=== PATIENT | male | born 1980 | race Caucasian/White ===

== ENCOUNTER 2024-06-24 19:33 | Emergency (ER) | payer MEDICAID ==
[~2024-06-24] VITALS: Ht 180.3 cm; Wt 105.1 kg
[~2024-06-24 19:33] MED LIST: AMLO1TAB22 PO; ATOR20TA50 PO; BLOO1KIT60 XX; ERTU5TAB PO; INSLANTI SC; LOSA-533 PO; METF-370 PO; PANT40TA2 PO
[2024-06-24 19:55] VITALS: BP 141/86; PULSE 104; RESP 22; O2SAT 95
[2024-06-24] MEDS ORDERED: SODIUM CHLORIDE 0.9% 1,000 ML IV ONE ×2 (20:00→23:15)
[2024-06-24] MEDS ORDERED: InsuLIN REG 1unit/0.01ml Soln (100units/ml) IV ONE (20:00)
[2024-06-24 20:31] LABS: Basophils # (auto) 0.1 10 ^3/uL (0-0.2); Basophils % (auto) 0.8 % (0.0-2.0); Eosinophils # (auto) 0.1 10 ^3/uL (0-0.8); Eosinophils % (auto) 1.2 % (0.0-7.0); Hematocrit 48.6 % (41.0-53.0); Hemoglobin 17.5 g/dL (13.5-17.5); Lymphocytes # (auto) 3.9 10 ^3/uL (0.4-5.4); Lymphocytes % (auto) 35.6 % (10.0-50.0); Mean Corpuscular Hemoglobin 34.2 pg (28.0-32.0); Monocytes # (auto) 0.6 10 ^3/uL (0-1.3); Monocytes % (auto) 5.6 % (0.0-12.0); Neutrophils # (auto) 6.2 10 ^3/uL (1.6-8.6); Neutrophils % (auto) 56.8 % (37.0-80.0); Nucleated Red Blood Cells % 0.1 %; Red Blood Cells 5.12 10^6/uL (4.5-5.90); Red Cell Distribution Width 13.1 % (11.8-14.3); White Blood Cell 10.9 10^3/uL (4.4-10.8)
[2024-06-24 20:36] LABS: Chloride 92 mmol/L (98-107); Potassium 3.7 mmol/L (3.5-5.1); Sodium 130 mmol/L (136-145)
[2024-06-24 20:37] LABS: Anion Gap 17 (5-15); Carbon Dioxide 21 mmol/L (20-30)
[2024-06-24 20:38] LABS: Calcium 9.8 mg/dL (8.7-10.4)
[2024-06-24 20:43] LABS: BUN/Creatinine Ratio 5.2 (10.0-20.0); Blood Urea Nitrogen 6 mg/dL (9-23)
[2024-06-24 20:47] LABS: Glucose 522 mg/dL (74-106)
[2024-06-24] MEDS ORDERED: ACETAMINOPHEN 325 MG TAB PO PRN (23:15)
[2024-06-24] MEDS ORDERED: ONDANSETRON HCL 4 MG/2 ML VIAL IV PRN (23:15)
[2024-06-24] MEDS ORDERED: DEXTROSE (50%) 50ML SYRG IV PRN (23:15)
[2024-06-25] MEDS ORDERED: InsuLIN REG 1unit/0.01ml Soln (100units/ml) SC SCH
[2024-06-25] MEDS ORDERED: ACCU-CHEK COMFORT CURVE STRIP VI SCH
[2024-06-25] MEDS ORDERED: LOSARTAN POTASSIUM 50 MG TAB PO SCH (10:00)
[2024-06-25] MEDS ORDERED: amLODIPine BESYLATE 5 MG TAB PO SCH (10:00)
[2024-06-25] MEDS ORDERED: ATORVASTATIN 20 MG TAB PO SCH (22:00)
== END 2024-06-25 00:10 | disposition left against medical advice (07) ==
LOC: ER 19:33 → OVERFLOW 23:11 → UNDOADMIN 23:11 → OVERFLOW 06-25 00:10
DX: E11.65 Type 2 diabetes mellitus with hyperglycemia (principal); F15.10 Other stimulant abuse, uncomplicated; E78.5 Hyperlipidemia, unspecified; I10 Essential (primary) hypertension; F17.210 Nicotine dependence, cigarettes, uncomplicated
CPT/HCPCS: 36415; 80048; 82010; 82962; 83036; 85025; G0378

== ENCOUNTER 2024-06-28 04:01 | Emergency (ER) | payer MEDICAID ==
[~2024-06-28] VITALS: Ht 180.3 cm; Wt 104.8 kg
[2024-06-28 04:05] VITALS: BP 116/85; PULSE 110; RESP 18; O2SAT 97
== END 2024-06-28 04:09 | disposition left against medical advice (07) ==
LOC: ER 04:05
DX: E11.65 Type 2 diabetes mellitus with hyperglycemia (principal); Z53.21 Procedure and treatment not carried out due to patient leaving prior to being seen by health care provider

== ENCOUNTER 2025-05-07 09:45 | Emergency (ER) | payer MEDICAID ==
[~2025-05-07] VITALS: Ht 180.3 cm; Wt 99.1 kg
--- NOTE | 2025-05-07 11:32 | ED.PDOC ---
History of Present Illness HPI Comments 44-year-old male w/ hx of pre dm who presents with a chief complaint of tooth pain x 3 days. Patient states that his pain is localized to his right upper teeth, and his pain rated as moderate at this time. Patient states that he has been taking Ibuprofen for the pain, with temp relief of symptoms. Patient denies seeing a dentist for this since symptoms began. Chief Complaint: Tooth Pain Time Seen by MD: 11:22 Primary Care Provider: ELIU Castillo Notes: Medications, Allergies Allergies: Coded Allergies: NO KNOWN ALLERGIES (Unverified , 04/20/10) Home Meds Active Scripts Blood Glucose Monitoring Suppl (D-Care Glucometer Kit/Glu W/Device) 1 Kit Kit, KIT XX BIDAC, #1 Prov:UZIEL BERNAL MD 06/01/22 Pantoprazole Sodium Sesquihydr (Protonix) 40 Mg Tab, 40 MG PO DAILY, #30 TAB Prov:UZIEL BERNAL MD 06/01/22 Atorvastatin Calcium (ATORVASTATIN CALCIUM) 20 Mg Tab, 1 TAB PO DAILY, #90 TAB 1 Refill Prov:UZIEL BERNAL MD 06/01/22 Insulin Glargine (Lantus) 100 Unit/Ml Inj, 15 UNITS SC HS, #10 INJ Prov:UZIEL BERNAL MD 06/01/22 Ertugliflozin l-Pyroglutamic A (Steglatro) 5 Mg Tab, 1 TAB PO DAILY, #30 TAB Prov:UZIEL BERNAL MD 06/01/22 Metformin Hydrochloride (Metformin Hcl) 500 Mg Tab, 1 TAB PO BID for 30 Days, #60 MG Prov:UZIEL BERNAL MD 06/01/22 Reported Medications Losartan Potassium (Losartan Potassium) 25 Mg Tab, 1 TAB PO DAILY for 30 Days, MG 05/31/22 Amlodipine Besylate (Amlodipine Besylate) 5 Mg Tab, 1 TAB PO DAILY, MG 05/31/22 Information Source: Patient Mode of Arrival: Ambulatory Severity: Moderate Timing: Days Duration: Since onset Prehospital treatment: None Past Medical History PAST MEDICAL HISTORY: DM, High Lipids, HTN Surgical History: Denies all surgeries Family History Family History: Reviewed,noncontributory to illness Social History Smoker: Cigarettes Alcohol: Heavy Drugs: Methamphetamine Lives In: Home All Other Systems: Reviewed and Negative ( PER HPI) Physical Exam General Appearance: No Apparent Distress, Normal HEENT: Normal ENT Inspection, Pharynx Normal, TMs Normal, Other (VISIBLE TOOTH DECAY TO UPPER AND LOWER TEETH, MMM, UVULA MIDLINE, NARES PATENT, NO ERYTHEMA OR SOFT TISSUE SWELLING, LOCALIZED TTP TO SINUSES) Neck: Full Range of Motion, Non-Tender, Normal, Normal Inspection Respiratory: Chest Non-Tender, Lungs Clear, No Accessory Muscle Use, No Respiratory Distress, Normal Breath Sounds Cardiovascular: No Murmur, No Gallop, Regular Rate/Rhythm Breast Exam: Deferred Gastrointestinal: No Organomegaly, Non Tender, No Pulsatile Mass, Normal Bowel Sounds, Soft Genitalia: Deferred Pelvic: Deferred Rectal: Deferred Extremities: No calf tenderness, Normal capillary refill, Normal inspection, Normal range of motion, Non-tender, No pedal edema Musculoskeletal : Apperance: Normal Neurologic: Alert, drum sander setter II-XII nml as Tested, No Motor Deficits, Normal Affect, Normal Mood, No Sensory Deficits Cerebellar Function: Normal Reflexes: Normal Skin: Dry, Normal Color, Warm Lymphatic: No Adenopathy Was a procedure done? Was a procedure done?: No Differential Dx Considerations may include: dental carries, dental abscess, subluxation X-Ray, Labs, Meds, VS Vital Signs Date Time Temp Pulse Resp B/P (MAP) Pulse Ox O2 Delivery O2 Flow Rate FiO2 05/07/25 18:17 98.2 98 16 125/74 (91) 95 98.2 05/07/25 17:50 68 18 142/98 05/07/25 17:06 105 18 137/101 05/07/25 14:16 95 18 139/92 05/07/25 14:15 98.6 95 18 139/92 (108) 99 98.6 05/07/25 13:11 91 18 137/88 05/07/25 13:10 91 19 137/88 (104) 100 05/07/25 12:45 98.0 98 16 142/88 (106) 98 98.0 05/07/25 12:45 98 16 97 Room Air 05/07/25 10:01 98.3 113 18 147/94 (111) 97 98.3 Lab Test 05/07/25 17:11 05/07/25 11:40 05/07/25 11:39 Range/Units Erythrocyte Sedimentation Rate 13 0-20 mm/hr Lactic Acid Level 3.1 *H 0.4-2.0 mmol/L White Blood Count 14.3 H 4.4-10.8 10^3/uL Red Blood Count 5.03 4.5-5.90 10^6/uL Hemoglobin 17.1 13.5-17.5 g/dL Hematocrit 47.6 41.0-53.0 % Mean Corpuscular Volume 94.7 80.0-100.0 fL Mean Corpuscular Hemoglobin 34.1 H 28.0-32.0 pg Mean Corpuscular Hemoglobin Concent 36.0 32.0-36.0 g/dL Red Cell Distribution Width 13.0 11.8-14.3 % Platelet Count 205 140-450 10^3/uL Mean Platelet Volume 9.2 6.9-10.8 fL Neutrophils (%) (Auto) 73.2 37.0-80.0 % Lymphocytes (%) (Auto) 19.2 10.0-50.0 % Monocytes (%) (Auto) 6.0 0.0-12.0 % Eosinophils (%) (Auto) 1.1 0.0-7.0 % Basophils (%) (Auto) 0.5 0.0-2.0 % Neutrophils # (Auto) 10.4 H 1.6-8.6 10 ^3/uL Lymphocytes # (Auto) 2.7 0.4-5.4 10 ^3/uL Monocytes # (Auto) 0.9 0-1.3 10 ^3/uL Eosinophils # (Auto) 0.2 0-0.8 10 ^3/uL Basophils # (Auto) 0.1 0-0.2 10 ^3/uL Nucleated Red Blood Cells 0.5 % Platelet Estimate Adequate Clumped Platelets Few Large Platelets Few Sodium Level 135 L 136-145 mmol/L Potassium Level 3.7 3.5-5.1 mmol/L Chloride Level 101 98-107 mmol/L Carbon Dioxide Level 21 20-31 mmol/L Anion Gap 13 5-15 Blood Urea Nitrogen < 5 L 9-23 mg/dL Creatinine 0.91 0.700-1.30 mg/dL Glomerular Filtration Rate Calc 107 >90 mL/min BUN/Creatinine Ratio 5.5 L 10.0-20.0 Serum Glucose 241 H 74-106 mg/dL Calcium Level 9.1 8.7-10.4 mg/dL C-Reactive Protein High Sensitivity 4.29 H <1.0 mg/dL Urine Color Light-yellow Yellow Urine Clarity Clear Clear Urine pH 5.5 5.0-9.0 Urine Specific [place] 1.039 H 1.001-1.035 Urine Protein Negative Negative Urine Ketones 3+ H Negative Urine Blood Negative Negative /uL Urine Nitrite Negative Negative Urine Bilirubin Negative Negative Urine Urobilinogen Normal Negative mg/dL Urine Leukocyte Esterase Negative Negative /uL Urine RBC <1 0 - 3 /hpf Urine Microscopic WBC 1 0-3 /HPF Urine Squamous Epithelial Cells Few <5 /hpf Urine Bacteria None seen None Seen /hpf Urine Glucose 4+ H Normal mg/dL Current Medications Medications (Trade) Dose Ordered Sig/Marsha Route Start Time Stop Time Status Last Admin Morphine Sulfate 4 mg ONCE ONCE IV 05/07/25 12:45 05/07/25 12:46 DC 05/07/25 13:11 Ceftriaxone Sodium 50 ml @ 100 mls/hr ONCE ONCE IV 05/07/25 12:45 05/07/25 13:14 DC 05/07/25 13:09 Sodium Chloride 1,000 ml @ 1,000 mls/hr Q1H ONCE IV 05/07/25 12:45 05/07/25 13:44 DC 05/07/25 12:48 Ampicillin Sodium/ Sulbactam Sodium 3 gm/Sodium Chloride 100 ml @ 100 mls/hr ONCE STAT IV 05/07/25 14:19 05/07/25 15:18 DC 05/07/25 17:12 Morphine Sulfate 4 mg ONCE ONCE IV 05/07/25 16:15 05/07/25 16:16 DC 05/07/25 17:06 Ondansetron HCl (Zofran) 4 mg ONCE ONCE IV 05/07/25 17:30 05/07/25 17:31 DC 05/07/25 17:25 Sodium Chloride 1,000 ml @ 1,000 mls/hr Q1H ONCE IV 05/07/25 17:45 05/07/25 18:44 DC 05/07/25 17:50 PATIENT: BRIDGET WILSON WACCT: [id number]: [id number] : 1980 LOC: ER ROOM / BED: / AGE / SEX: 44 / M ADM STATUS: REG ER SERVICE [id number] ORDERING PHYSICIAN: ALVINA JANE NP PROCEDURE(s): FACIC - MAXILLOFACIAL WITH REASON: R/o abscess formation ORDER NUMBER(s): [id number], ACCESSION NUMBER(s): [id number] Procedure: CT MAXILLOFACIAL WITH Study Date and Requested Time: 05/07/2025 12:50 PM History: R/o abscess formation Comparison: None Dose: CTDI: 66.88 mGy DLP: 1662.9 mGycm Technique: Multiplanar images obtained through the face without intravenous contrast. Findings: 1.1 x 3.8 x 0.7 cm abscess of the ujxex-ybsgtie-bpuq-left midline anterior maxilla with associated adjacent stranding. Additional small abscesses are noted of the left anterior maxilla measuring up to 0.4 cm and 0.5 cm.. Multiple teeth with dental caries. Polypoid mucoperiosteal thickening of the maxillary sinuses. Chronic deformity of the right lamina papyracea. Orbits and globes unremarkable. The nasal septum is relatively midline with left-sided nasal spurring. No evidence of acute traumatic fractures. Shotty cervical lymph nodes which are most likely reactive. Prominent cisterna magna versus posterior fossa arachnoid cyst. Otherwise partially visualized intracranial structures unremarkable. [place] tonsilliths are noted bilaterally. 0.2 x 0.5 x 0.4 cm nonenhancing focus within the left palatine tonsil. Impression: Multiple teeth with dental caries. There is associated anterior maxillary small periosteal abscesses adjacent to the bilateral central incisor, left lateral incisor and left canine, largest pocket over the suexe-ontosvw-pkka-left midline measuring up to 1.1 x 3.8 x 0.7 cm Polypoid mucoperiosteal thickening of the maxillary sinuses. Mild prominence of the palatine tonsils with 0.2 x 0.5 x 0.4 cm nonenhancing focus within the left palatine tonsil which may represent peritonsillar abscess. ATED BY: CECILLE GONZALEZ DO DICTATED DATE/TIME: 05/07/25 1341 SIGNED BY: CECILLE GONZALEZ DO SIGNED DATE/TIME: 05/07/25 8731 CC: X-Ray, Labs, Meds, VS Comment 44-year-old male presents with a chief complaint of tooth pain x 3 days. Patient arrives alert and oriented, ABC's intact, afebrile, vital signs stable, saturating well in room air Peripheral IV insertion+ labs were ordered. CBC was ordered to exclude anemia, blood loss, or infection. BMP was ordered to exclude electrolyte abnormalities, renal failure, dehydration, hyperglycemia Urinalysis was ordered to rule out UTI or hematuria. Diagnostic imaging ordered by me and results interpreted by radiology : MAXILL OFACIAL CT WITH IV CONTRAST 1. Multiple teeth with dental caries. There is associated anterior maxillary small periosteal abscesses adjacent to the bilateral central incisor, left lateral incisor and left canine, largest pocket over the ffmkc-fiawzfr-hnyx-left midline measuring up to 1.1 x 3.8 x 0.7 cm 2. Polypoid mucoperiosteal thickening of the maxillary sinuses. 3. Mild prominence of the palatine tonsils with 0.2 x 0.5 x 0.4 cm nonenhancing focus within the left palatine tonsil which may represent peritonsillar abscess. Patient was given: MORPHINE, NORMAL SALINE, ROCEPHIN. Tolerated medications with no adverse reaction. Patients work up was remarkable for small periosteal abscesses adjacent to the bilateral central incisor, left lateral incisor and left canine, largest pocket over the iqpvp-eetvsqv-mwcw-left midline measuring up to 1.1 x 3.8 x 0.7 cm The patient's workup reveals that the patient needs further evaluation and/or treatment for the above medical conditions. Will benefit from IV ABx. Patient verbalized understanding of the above and is awaiting further evaluation by the admitting service. Patient was accepted for Transfer [facility] ER [facility] from [facility] to [facility]. Accepting physician is Dr. Daniel Hua. Patient was accepted at 17:16. 1719: lactic 3.1. Ordered another 1 L bolus NS. Ordered stewart judge to notify [facility] about recent lab result. Pt stable at this time Time of 1ST Reevaluation: 11:52 Reevaluation 1ST: Unchanged Time of 2ND Reevaluation: 14:17 Reevaluation 2ND: Improved Patient Education/Counseling: Diagnosis, Treatment, Prognosis Family Education/Counseling: No Family Present SEPSIS Sepsis Screen Date sepsis recognized/suspect: May 07, 2025 Time Sepsis recognized/suspect: 1001 Recent Procedure: No On Antibiotic Therapy: No Respiratory Rate >20: No Heart Rate >90: Yes Temp<36 C (96.8 F) or >38.3 C: No SBP <90 or MAP <65 mmHG: No New Acute Mental Status Change: No Is the patient on CPAP, BIPAP,: No Physician Orders Maxillofacial With (05/07/25 12:34) Heplock Iv (05/07/25 ) Imaging Transfer Request (05/07/25 17:33) Vital Signs Date Time Temp Pulse Resp B/P (MAP) Pulse Ox O2 Delivery O2 Flow Rate FiO2 05/07/25 18:17 98.2 98 16 125/74 (91) 95 98.2 05/07/25 17:50 68 18 142/98 05/07/25 17:06 105 18 137/101 05/07/25 14:16 95 18 139/92 05/07/25 14:15 98.6 95 18 139/92 (108) 99 98.6 05/07/25 13:11 91 18 137/88 05/07/25 13:10 91 19 137/88 (104) 100 05/07/25 12:45 98.0 98 16 142/88 (106) 98 98.0 05/07/25 12:45 98 16 97 Room Air 05/07/25 10:01 98.3 113 18 147/94 (111) 97 98.3 Laboratory Tests Test 05/07/25 11:40 05/07/25 17:11 White Blood Count 14.3 10^3/uL (4.4-10.8) H Lactic Acid Level 3.1 mmol/L (0.4-2.0) *H Departure 1 Departure Time of Disposition: 14:20 Impression: Primary Impression: Dental abscess Additional Impression: Hyperglycemia Disposition: 51 HOSPICE/MEDICAL FACILITY Condition: Serious Critical Care Note Critical Care Time?: No Stability Stability form required: No Heart Score Heart Score: Heart Score Response (Comments) Value History N/A 0 EKG N/A 0 Age N/A 0 Risk Factors N/A 0 Troponin N/A 0 Total 0 I personally scribed for ALVINA JANE NP ([email or web address]) on 05/07/25 at 11:32. Electronically submitted by Eric Guevara ([email or web address]). I personally scribed for ALVINA JANE CRIME SCENE EXAMINER ([email or web address]) on 05/07/25 at 11:43. Electronically submitted by Eric Guevara ([email or web address]). I personally scribed for ALVINA JANE CR[employer] SCENE EXAMINER ([email or web address]) on 05/07/25 at 12:37. Electronically submitted by Eric Guevara ([email or web address]). I personally scribed for ALVINA JANE CRIME SCENE EXAMINER ([email or web address]) on 05/07/25 at 14:01. Electronically submitted by Eric Guevara ([email or web address]). I personally scribed for ALVINA JANE CRIME SCENE EXAMINER ([email or web address]) on 05/07/25 at 17:18. Electronically submitted by Eric Guevara ([email or web address]). ALVINA JANE NP May 07, 2025 11:32
[2025-05-07 12:02] LABS: Basophils # (auto) 0.1 10 ^3/uL (0-0.2); Basophils % (auto) 0.5 % (0.0-2.0); Eosinophils # (auto) 0.2 10 ^3/uL (0-0.8); Eosinophils % (auto) 1.1 % (0.0-7.0); Hematocrit 47.6 % (41.0-53.0); Hemoglobin 17.1 g/dL (13.5-17.5); Lymphocytes # (auto) 2.7 10 ^3/uL (0.4-5.4); Lymphocytes % (auto) 19.2 % (10.0-50.0); Mean Corpuscular Hemoglobin 34.1 pg (28.0-32.0); Mean Corpuscular Volume 94.7 fL (80.0-100.0); Monocytes # (auto) 0.9 10 ^3/uL (0-1.3); Neutrophils # (auto) 10.4 10 ^3/uL (1.6-8.6); Neutrophils % (auto) 73.2 % (37.0-80.0); Nucleated Red Blood Cells % 0.5 %; Platelet Count (auto) 205 10^3/uL (140-450); Red Blood Cells 5.03 10^6/uL (4.5-5.90); White Blood Cell 14.3 10^3/uL (4.4-10.8)
[2025-05-07 12:03] LABS: Chloride 101 mmol/L (98-107); Potassium 3.7 mmol/L (3.5-5.1)
[2025-05-07 12:04] LABS: Anion Gap 13 (5-15); Calcium 9.1 mg/dL (8.7-10.4); Carbon Dioxide 21 mmol/L (20-31); Sodium 135 mmol/L (136-145)
[2025-05-07 12:10] LABS: BUN/Creatinine Ratio 5.5 (10.0-20.0); Blood Urea Nitrogen < 5 mg/dL (9-23); Glucose 241 mg/dL (74-106)
[2025-05-07 12:25] LABS: Large Platelets FEW; Platelet Estimate Adequate
[2025-05-07] MEDS: SODIUM CHLORIDE 0.9% 1,000 ML IV ONE ×2 (12:48→17:50)
[2025-05-07] MEDS: cefTRIAXone 1GM/50ML D5W 50 ML IV ONE (13:09)
[2025-05-07] MEDS: MORPHINE SULFATE 4 MG/ML SYR/VIAL IV ONE ×2 (13:11→17:06)
[2025-05-07 13:18] LABS: Urine Bacteria None Seen /hpf (None Seen)
--- NOTE | 2025-05-07 13:43 | DVH ---
Procedure: CT MAXILLOFACIAL WITH Study Date and Requested Time: 12:50 PM History: R/o abscess formation Comparison: None Dose: CTDI: 66.88 mGy DLP: 1662.9 mGycm Technique: Multiplanar images obtained through the face without intravenous contrast. Findings: 1.1 x 3.8 x 0.7 cm abscess of the ndhjj-fsoyfpo-kvwo-left midline anterior maxilla with associated ad jacent stranding. Additional small abscesses are noted of the left anterior maxilla measuring up to 0 .4 cm and 0.5 cm.. Multiple teeth with dental caries. Polypoid mucoperiosteal thickening of the maxillary sinuses. Chronic deformity of the right lamina pa pyracea. Orbits and globes unremarkable. The nasal septum is relatively midline with left-sided nasal spurring. No evidence of acute traumatic fractures. Shotty cervical lymph nodes which are most likely reactive. Prominent cisterna magna versus posterior fossa arachnoid cyst. Otherwise partially visualized intra cranial structures unremarkable. [place] tonsilliths are noted bilaterally. 0.2 x 0.5 x 0.4 cm nonenhancing focus within the left pal atine tonsil. Impression: Multiple teeth with dental caries. There is associated anterior maxillary small periosteal abscesses adjacent to the bilateral central incisor, left lateral incisor and left canine, largest pocket over the fuzdh-juyefwq-shie-left midline measuring up to 1.1 x 3.8 x 0.7 cm Polypoid mucoperiosteal thickening of the maxillary sinuses. Mild prominence of the palatine tonsils with 0.2 x 0.5 x 0.4 cm nonenhancing focus within the left pa latine tonsil which may represent peritonsillar abscess.
[2025-05-07 13:57] LABS: Urine Blood Negative /uL (Negative); Urine Clarity Clear (Clear); Urine Color Light-Yellow (Yellow); Urine Protein, UAD Negative (Negative); Urine Specific Gravity 1.039 (1.001-1.035); Urine Squamous Epithelial Cell FEW /hpf (<5); Urine Urobilinogen Normal (Negative); Urine WBC 1 /HPF (0-3); Urine pH 5.5 (5.0-9.0)
[2025-05-07] MEDS: AMPICILLIN & SULBACTAM SODIUM 3 GM in SODIUM CHL 0.9% 100 ML IV STA (17:12)
[2025-05-07] MEDS: ONDANSETRON HCL 4 MG/2 ML VIAL IV ONE (17:25)
[2025-05-07 17:38] LABS: Lactic Acid w/Reflex 3.1 mmol/L (0.4-2.0)
[2025-05-07 17:52] LABS: Erythrocyte Sedimentation Rate 13 mm/hr (0-20)
[2025-05-07 18:17] VITALS: BP 125/74; PULSE 98; RESP 16; TEMP 98.2; O2SAT 95
== END 2025-05-07 16:11 | disposition short-term general hospital (02) ==
LOC: ER 09:45
DX: K04.7 Periapical abscess without sinus (principal); E11.65 Type 2 diabetes mellitus with hyperglycemia; I10 Essential (primary) hypertension; F17.210 Nicotine dependence, cigarettes, uncomplicated; R42 Dizziness and giddiness; Z79.899 Other long term (current) drug therapy; Z86.2 Personal history of diseases of the blood and blood-forming organs and certain disorders involving the immune mechanism
CPT/HCPCS: 36415; 70487; 80048; 81001; 83605; 85025; 85652; 86141; 96365; 96367; 96375; 96376; 99285; J0696; J2270; J2405; Q9967

== ENCOUNTER 2025-08-22 18:34 | Emergency (ER) | payer MEDICAID ==
[~2025-08-22] VITALS: Ht 180.3 cm; Wt 90.0 kg
--- NOTE | 2025-08-22 19:15 | ED.PDOC ---
History of present illness HPI Comments Chaz Bales is a 45-year-old male, with past medical history of hypertension, hyperlipidemia, DKA and DM2. The patient came to the ED with chief complain of 4 days of malaise, fatigue, polyuria and polydipsia. The patient reports 3 days ago he ran out off his medications for DM2, he takes: Steglatro 5mg po qd, Insulin Lantus 12U at night, Lispro 12U with every meal. Since then (3 days ago) his home blood sugar readings have been >500. Today, his home blood sugar readings continue raising, this prompted his visit to the ED. The patient denies, headache, dizziness, chest pain, shortness of breath, diarrhea or other symptoms. In the ED BP: 144/94mmHg, HR: 109, peripheral blood glucose readin. The patient will be further assessed. Attestation note: Dr. Nobles: I was the supervising attending for this ED encounter. Please see the resident's notes. I was available for questions and consultations. Differential diagnosis: DKA, hyperosmolar state, electrolyte abnormality, infection, dehydration MDM: MDM: patient presented with the above HPI.---hyperglycemia---workup was initiated. patient was found with the above mentioned diagnosis. the following medications were ordered: please refer to order lists of meds and tests obtained by myself Dr. Nobles. Patient ED course and VS have been stabilized. Patient has been reassessed in the ED and remained in a stable condition. Pertinent incidental findings were discussed with the patient and/or family. Patient/family voices understanding and is agreeable with plan. Patient has been observed in the ED adequate length of time to insure improvement/stability. Escalation of care considered: Consideration of escalation to observation or admission Patient ran out of medication request his refill his existing medication. His medication was renewed. Patient was DISCHARGED home in a stable condition. All the reports of any imaging studies that were ordered by myself were reviewed by myself. Chief Complaint: Hyperglycemia Time Seen by MD: 18:38 Primary Care Provider: ELIU History of present illness: Nurses Notes, Medications, Allergies Allergies: Coded Allergies: NO KNOWN ALLERGIES (Unverified , 04/20/10) Home Meds Active Scripts Blood Glucose Monitoring Suppl (D-Care Glucometer Kit/Glu W/Device) 1 Kit Kit, KIT XX BIDAC, #1 Prov:UZIEL BERNAL MD 06/01/22 Pantoprazole Sodium Sesquihydr (Protonix) 40 Mg Tab, 40 MG PO DAILY, #30 TAB Prov:UZIEL BERNAL MD 06/01/22 Atorvastatin Calcium (ATORVASTATIN CALCIUM) 20 Mg Tab, 1 TAB PO DAILY, #90 TAB 1 Refill Prov:UZIEL BERNAL MD 06/01/22 Insulin Glargine (Lantus) 100 Unit/Ml Inj, 15 UNITS SC HS, #10 INJ Prov:UZIEL BERNAL MD 06/01/22 Ertugliflozin l-Pyroglutamic A (Steglatro) 5 Mg Tab, 1 TAB PO DAILY, #30 TAB Prov:UZIEL BERNAL MD 06/01/22 Metformin Hydrochloride (Metformin Hcl) 500 Mg Tab, 1 TAB PO BID for 30 Days, #60 MG Prov:UZIEL BERNAL MD 06/01/22 Reported Medications Losartan Potassium (Losartan Potassium) 25 Mg Tab, 1 TAB PO DAILY for 30 Days, MG 05/31/22 Amlodipine Besylate (Amlodipine Besylate) 5 Mg Tab, 1 TAB PO DAILY, MG 05/31/22 Information Source: Patient, Spouse Mode of Arrival: Ambulatory Timing: Days Duration: Intermittent History of: Diabetes, Insulin use (Lantus: 12 U at night, Lispro: 12 U every meal ) Past Medical History PAST MEDICAL HISTORY: DM, High Lipids, HTN Surgical History: Denies all surgeries Family History Family History: Reviewed,noncontributory to illness Social History Smoker: Cigarettes, Less Than 1 Pack/Day Alcohol: Heavy Drugs: Methamphetamine Lives In: Home Constitutional: reports: fatigue; denies: chills, diaphoresis, fever, malaise, sweats, weakness, others EENTM: denies: blurred vision, double vision, ear bleeding, ear discharge, ear drainage, ear pain, ear ringing, eye pain, eye redness, hearing loss, mouth pain, mouth swelling, nasal discharge, nose bleeding, nose congestion, nose pain, photophobia, tearing, throat pain, throat swelling, voice changes, others Respiratory: denies: cough, hemoptysis, orthopnea, SOB at rest, shortness of breath, SOB with excertion, stridor, wheezing, others Cardiovascular: denies: chest pain, dizzy spells, diaphoresis, Dyspnea on exertion, edema, irregular heart beat, left arm pain, lightheadedness, palpitations, PND, syncope, others Gastrointestinal: denies: abdomen distended, abdominal pain, blood streaked bowels, constipated, diarrhea, dysphagia, difficulty swallowing, hematemesis, melena, nausea, poor appetite, poor fluid intake, rectal bleeding, rectal pain, vomiting, others Genitourinary: reports: frequency (Polyuria and polydipsia), urgency; denies: burning, dysuria, flank pain, hematuria, incontinence, penile discharge, penile sore, pain, testicle pain, testicle swelling, others Neurological: denies: dizziness, fainting, headache, left sided numbness, left sided weakness, numbness, paresthesia, pre-existing deficit, right sided numbness, right sided weakness, seizure, speech problems, tingling, tremors, weakness, others Musculoskeletal: denies: back pain, gout, joint pain, joint swelling, muscle pain, muscle stiffness, neck pain, others Integumetry: denies: bruises, change in color, change in hair/nails, dryness, laceration, lesions, lumps, rash, wounds, others Allergic/Immunocompromised: denies: Difficulty Healing, Frequent Infections, Hives, Itching, others Hematologic/Lymphatic: denies: anemia, blood clots, easy bleeding, easy bruising, swollen glands, others Endocrine: denies: excessive hunger, excessive sweating, excessive thirst, excessive urination, flushing, intolerance to cold, intolerance to heat, unexplained weight gain, unexplained weight loss, others Psychiatric: denies: anxiety, bipolar disorder, depression, hopeless, panic disorder, schizophrenia, sleepless, suicidal, others Physical Exam Exam Comments Alert, oriented x3, face and arms sun burn. General Appearance: No Apparent Distress, Normal HEENT: Normal ENT Inspection, Pharynx Normal, TMs Normal Neck: Full Range of Motion, Non-Tender, Normal, Normal Inspection Respiratory: Chest Non-Tender, Lungs Clear, No Accessory Muscle Use, No Respiratory Distress, Normal Breath Sounds Cardiovascular: No Edema, No JVD, No Murmur, No Gallop, Normal Peripheral Pulses, Regular Rate/Rhythm Breast Exam: Deferred Gastrointestinal: Soft (Bowel sounds present. Tenderness on deep palpation in epigastric area. ) Genitalia: Deferred Pelvic: Deferred Rectal: Deferred Extremities: No calf tenderness, Normal capillary refill, Normal inspection, Normal range of motion, Non-tender, No pedal edema Musculoskeletal : Apperance: Normal Neurologic: Alert, shampoo assistant II-XII nml as Tested, No Motor Deficits, Normal Affect, Normal Mood, No Sensory Deficits Cerebellar Function: Normal Reflexes: Normal Skin: Dry, Warm, Other (Face and arms sunburn, the patient works in construction. ) Lymphatic: No Adenopathy Was a procedure done? Was a procedure done?: No Differential Diagnosis (DM) Differential Diagnosis: Dehydration, DKA, Gastritis, Hyperglycemia, Pancreatitis, UTI X-Ray, Labs, Meds, VS Vital Signs Date Time Temp Pulse Resp B/P (MAP) Pulse Ox O2 Delivery O2 Flow Rate FiO2 08/22/25 20:16 98.2 100 17 117/79 (92) 99 98.2 08/22/25 18:34 97.0 109 18 144/94 97 97.0 Lab Test 08/22/25 20:18 08/22/25 19:00 Range/Units POC Glucose 374 H 70-106 mg/dl White Blood Count 8.4 4.4-10.8 10^3/uL Red Blood Count 4.85 4.5-5.90 10^6/uL Hemoglobin 16.0 13.5-17.5 g/dL Hematocrit 45.5 41.0-53.0 % Mean Corpuscular Volume 93.9 80.0-100.0 fL Mean Corpuscular Hemoglobin 33.0 H 28.0-32.0 pg Mean Corpuscular Hemoglobin Concent 35.2 32.0-36.0 g/dL Red Cell Distribution Width 12.6 11.8-14.3 % Platelet Count 234 140-450 10^3/uL Mean Platelet Volume 8.7 6.9-10.8 fL Neutrophils (%) (Auto) 57.0 37.0-80.0 % Lymphocytes (%) (Auto) 34.0 10.0-50.0 % Monocytes (%) (Auto) 6.7 0.0-12.0 % Eosinophils (%) (Auto) 1.3 0.0-7.0 % Basophils (%) (Auto) 1.0 0.0-2.0 % Neutrophils # (Auto) 4.8 1.6-8.6 10 ^3/uL Lymphocytes # (Auto) 2.8 0.4-5.4 10 ^3/uL Monocytes # (Auto) 0.6 0-1.3 10 ^3/uL Eosinophils # (Auto) 0.1 0-0.8 10 ^3/uL Basophils # (Auto) 0.1 0-0.2 10 ^3/uL Nucleated Red Blood Cells 0.1 % Sodium Level 135 L 136-145 mmol/L Potassium Level 3.6 3.5-5.1 mmol/L Chloride Level 98 98-107 mmol/L Carbon Dioxide Level 23 20-31 mmol/L Anion Gap 14 5-15 Blood Urea Nitrogen < 5 L 9-23 mg/dL Creatinine 1.07 0.700-1.30 mg/dL Glomerular Filtration Rate Calc 87 >90 mL/min BUN/Creatinine Ratio 4.7 L 10.0-20.0 Serum Glucose 471 *H 74-106 mg/dL Calcium Level 9.5 8.7-10.4 mg/dL Magnesium Level 1.9 1.6-2.6 mg/dL Total Bilirubin 0.5 0.2-1.0 mg/dL Aspartate Amino Transferase (AST) 36 13-40 U/L Alanine Aminotransferase (ALT) 48 H 7-40 U/L Alkaline Phosphatase 76 46-116 U/L Total Protein 7.5 5.7-8.2 g/dL Albumin 4.7 3.2-4.8 g/dL Lipase 49 12-53 U/L Beta-Hydroxybutyric Acid 0.210 < 0.4 mmol/L Current Medications Medications (Trade) Dose Ordered Sig/Marsha Route Start Time Stop Time Status Last Admin Sodium Chloride 1,000 ml @ 1,000 mls/hr Q1H ONCE IV 08/22/25 19:15 08/22/25 20:14 DC 08/22/25 20:30 Sodium Chloride 1,000 ml @ 1,000 mls/hr Q1H ONCE IV 08/22/25 19:15 08/22/25 20:14 DC 08/22/25 20:30 Insulin Human Regular (InsuLIN R) 10 units ONCE ONCE IV 08/22/25 19:15 08/22/25 19:16 DC 08/22/25 20:29 X-Ray, Labs, Meds, VS Comment 07:35 The patient has been reassessed, the patient reports status unchanged. CBC: WBC: 8.4x10e3/uL Hb:16mg/dl 07:49 Labs were reviewed CMP: Na: 135mmol/l Anion gap 14 Blood glucose: 473 after 10U of Insulin R. IV Time of 1ST Reevaluation: 19:35 Reevaluation 1ST: Unchanged Patient Education/Counseling: Diagnosis, Treatment, Prognosis, Need For Follow Up Family Education/Counseling: Diagnosis, Treatment, Prognosis, Need For Follow Up SEPSIS Sepsis Screen Date sepsis recognized/suspect: Aug 22, 2025 Time Sepsis recognized/suspect: 1835 Recent Procedure: No On Antibiotic Therapy: No Respiratory Rate >20: No Heart Rate >90: Yes Temp<36 C (96.8 F) or >38.3 C: No SBP <90 or MAP <65 mmHG: No New Acute Mental Status Change: No Is the patient on CPAP, BIPAP,: No Physician Orders Educational Assistant (08/22/25 ) Urinalysis (08/22/25 18:37) Accucheck (08/22/25 ) Vital Signs Date Time Temp Pulse Resp B/P (MAP) Pulse Ox O2 Delivery O2 Flow Rate FiO2 08/22/25 20:16 98.2 100 17 117/79 (92) 99 98.2 08/22/25 18:34 97.0 109 18 144/94 97 97.0 Laboratory Tests Test 08/22/25 19:00 White Blood Count 8.4 10^3/uL (4.4-10.8) Medications Medications Dose Ordered Sig/Marsha Route Start Time Stop Time Status Last Admin Dose Admin Insulin Human Regular 10 units ONCE ONCE IV 08/22/25 19:15 08/22/25 19:16 DC 08/22/25 20:29 Sodium Chloride 1,000 ml @ 1,000 mls/hr Q1H ONCE IV 08/22/25 19:15 08/22/25 20:14 DC 08/22/25 20:30 Sodium Chloride 1,000 ml @ 1,000 mls/hr Q1H ONCE IV 08/22/25 19:15 08/22/25 20:14 DC 08/22/25 20:30 Departure 1 Departure Time of Disposition: 20:19 Impression: Primary Impression: Hyperglycemia Additional Impression: Uncontrolled diabetes mellitus Disposition: HOME / SELF CARE / HOMELESS Admit to: Med Surg Condition: Stable Additional Instructions: Additional instructions: Please read all instructions provided in this packet carefully. You MUST follow-up with your primary care/family doctor in 1 to 2 days. If you are unable to see your primary care/family doctor, please return to our emergency room for re-assessment and re-evaluation in 1 to 2 days. Return to the emergency room here in our facility or to the nearest ER [facility] if your symptoms change or worsen. CONSULTATIONS: you MUST Follow-up for consultation as soon as possible with: endocrinology in 1-2 days. Please call for appointment. You MUST call the consultants office yourself to make an appointment. You may need to arrange that through your insurance and/or your primary/family doctor. If you are unable to see the technical support consultant in 1 to 2 days, you must return to our emergency room (or any other ER of your choice) for re-assessment and re- evaluation. Adequate fluid hydration. Although you have been discharged from the Emergency Department, this does not mean that you have a "clean bill of health". No definitive diagnosis for your symptoms has been made today. It is possible that you are in the process of developing a serious illness. This is why you must return to the ED without fail if any new or worsening symptoms develop. Monitoring blood sugar level closely. Compliant with the medication. e-Prescriptions Insulin Glargine (Lantus) 100 Unit/Ml Inj 15 UNITS SC HS, #10 INJ Prov: KIANA NOBLES DO 08/22/25 Ertugliflozin l-Pyroglutamic A (Steglatro) 5 Mg Tab 1 TAB PO DAILY, #30 TAB Prov: KIANA NOBLES DO 08/22/25 Discharged With: Self Comments Goals of care discussed with the patient > 35 min. Discussed plan of care with Dr. Nobles. Code status: Full code PCP: Dr. Russell (the patient has an appointment on the 09/09) Plan discussed with: Patient, the patient agrees with the plan. Critical Care Note Critical Care Time?: No Stability Stability form required: No Heart Score Heart Score: Heart Score Response (Comments) Value History N/A 0 EKG N/A 0 Age N/A 0 Risk Factors N/A 0 Troponin N/A 0 Total 0 ARNULFO,RAYMUNDO RESIDENT Aug 22, 2025 19:15 KIANA NOBLES DO Aug 22, 2025 22:18
[2025-08-22 19:22] LABS: Hematocrit 45.5 % (41.0-53.0); Hemoglobin 16.0 g/dL (13.5-17.5); Mean Corpuscular Hemoglobin 33.0 pg (28.0-32.0); Mean Corpuscular Volume 93.9 fL (80.0-100.0); Nucleated Red Blood Cells % 0.1 %
[2025-08-22 19:34] LABS: Albumin 4.7 g/dL (3.2-4.8); Alkaline Phosphatase 76 U/L (46-116); Anion Gap 14 (5-15); Calcium 9.5 mg/dL (8.7-10.4); Carbon Dioxide 23 mmol/L (20-31); Magnesium 1.9 mg/dL (1.6-2.6); Potassium 3.6 mmol/L (3.5-5.1); Total Protein 7.5 g/dL (5.7-8.2)
[2025-08-22 19:35] LABS: Bilirubin, Total 0.5 mg/dL (0.2-1.0)
[2025-08-22 19:36] LABS: Alanine Aminotransferase 48 U/L (7-40); BUN/Creatinine Ratio 4.7 (10.0-20.0); Blood Urea Nitrogen < 5 mg/dL (9-23); Chloride 98 mmol/L (98-107); Sodium 135 mmol/L (136-145)
[2025-08-22 19:40] LABS: Glucose 471 mg/dL (74-106)
[2025-08-22] MEDS: InsuLIN REG 1unit/0.01ml Soln (100units/ml) IV ONE (20:29)
[2025-08-22] MEDS: SODIUM CHLORIDE 0.9% 1,000 ML IV ONE ×2 (20:30)
[2025-08-22] MEDS ORDERED: ERTU5TAB PO (22:16)
[2025-08-22] MEDS ORDERED: INSLANTI SC (22:16)
[2025-08-22 23:07] VITALS: BP 135/96; PULSE 102; RESP 18; TEMP 97.8; O2SAT 97
== END 2025-08-22 23:07 | disposition home or self-care (01) ==
LOC: ER 18:37
DX: E11.65 Type 2 diabetes mellitus with hyperglycemia (principal); E78.5 Hyperlipidemia, unspecified; I10 Essential (primary) hypertension; F10.90 Alcohol use, unspecified, uncomplicated; F19.90 Other psychoactive substance use, unspecified, uncomplicated; F17.210 Nicotine dependence, cigarettes, uncomplicated; Z79.899 Other long term (current) drug therapy; Z79.4 Long term (current) use of insulin; Z79.84 Long term (current) use of oral hypoglycemic drugs; Y90.9 Presence of alcohol in blood, level not specified
CPT/HCPCS: 36415; 80053; 82010; 82947; 83690; 83735; 85025; 96361; 96374; 99283; J1815; J7030; 82962